=== PATIENT | female | born 1940 | race Caucasian/White ===

== ENCOUNTER 2020-10-04 09:24 | Inpatient (IN) | payer MEDICARE ==
[~2020-10-04] VITALS: Ht 165.1 cm; Wt 77.9 kg
--- NOTE | 2020-10-04 09:42 | NUR ---
PATIENT WENT URGENT CARE YESTERDAY AT [facility] AND WAS DIAGNOSED WITH UTI AND WAS GIVEN NITORFURITAN AND FLUCANOZOLE Addendum: 10/04/20 at 0943 by DEVIN PATIENT WAS SEEN YESTERDAY [facility] FOR UTI AND GIVEN FLUCANOZOLE AND NITROFURITAN, STARTED THEM BUT TODAY FEELS WEAK/LEGS HEAVY/ LIGHT HEADED.
[2020-10-04] MEDS ORDERED: SODIUM CHLORIDE 0.9% 1,000ML IVBOLUS ONE ×2 (11:00→13:30)
[2020-10-04] MEDS ORDERED: SODIUM CHLORIDE FLUSH 10ML SYR IVF ONE (11:00)
--- NOTE | 2020-10-04 11:19 | NUR ---
patient a difficult stick. myself, tech attempted 5 times before getting iv. apoligizing, aidet
--- NOTE | 2020-10-04 11:37 | NUR ---
patient doesn't have to stool at this time. lab attempting to get bloodwork, the iv wouldn't draw blood. will cath patient once lab leaves.
--- NOTE | 2020-10-04 12:00 | NUR ---
cath'd patient. dark yellow urine out. sent to lab. 350 cc
[2020-10-04 12:04] LABS: ALANINE AMINOTRANSFERASE 31 U/L (12-78); ALBUMIN 3.3 g/dL (3.4-5.0); ANION GAP 4 mmol/L (5-15); CALCIUM 9.6 mg/dL (8.5-10.1); CHLORIDE 112 mmol/L (98-107); CREATININE 1.86 mg/dL (0.55-1.02)
[2020-10-04 12:07] LABS: ALKALINE PHOSPHATASE 48 U/L (45-117); BILIRUBIN,TOTAL 1.1 mg/dL (0.2-1.0); TOTAL PROTEIN 6.9 g/dL (6.4-8.2)
--- NOTE | 2020-10-04 12:22 | NUR ---
patient aox4. hypotensive, and lab draw not viable so redrawing, got order for new liter fluid to help lab draw and bp. son at bedside.
[2020-10-04 12:42] LABS: MEAN CORPUSCULAR HEMOGLOBIN 29.8 pg (27.0-34.8); MEAN CORPUSCULAR HGB CONC 33.3 g/dL (32.4-35.8); MEAN PLATELET VOLUME 7.6 fL (7.4-10.4); PLATELET COUNT 261 x10^3/uL (130-400); RED BLOOD COUNT 4.02 x10^6/uL (3.82-5.3); RED CELL DISTRIBUTION WIDTH 15.1 % (9.6-15.2)
[2020-10-04 13:16] LABS: MICROSCOPIC INDICATED
--- NOTE | 2020-10-04 13:17 | NUR ---
placed patient on jamal hugger, she has asked 3x for blankets and has 4. daughter at bedside.
[2020-10-04 13:21] LABS: MD YES
[2020-10-04 13:22] LABS: BAND#(MANUAL) 0.56 x10^3/uL; BANDS%(MANUAL) 3 % (0-7); EOS#(MANUAL) 0.19 x10^3/uL (0.0-0.4); EOS% (MANUAL) 1 % (1-7); LYMPH#(MANUAL) 0.56 x10^3/uL (1-3.4); LYMPHS% (MANUAL) 3 % (22-44); SEG#(MANUAL) 17.39 x10^3/uL (1.8-6.8); SEGS% (MANUAL) 93 % (42-75)
[2020-10-04 13:23] LABS: <PLATELET ESTIMATE> ADEQUATE; <PLT MORPHOLOGY> NORMAL PLT MORPH; OVALOCYTES 1+
--- NOTE | 2020-10-04 13:42 | NUR ---
consenting patient for central line and setting up. patient and daughter discussing. on monitor, rails up.
--- NOTE | 2020-10-04 15:02 | NUR ---
TASK RN: PT RESTING IN [facility]. FAMILY MEMBER BEDSIDE.
--- NOTE | 2020-10-04 15:18 | NUR ---
patient left to ct scan
[2020-10-04] MEDS ORDERED: PROMETHAZINE 25 MG/ML, 1ML IM PRN (16:00)
[2020-10-04] MEDS ORDERED: hydrALAzine 20 MG/ML, 1ML IVPush PRN (16:00)
[2020-10-04] MEDS: CEFTRIAXONE PMX 2GM/50ML 50 ML IVPB SCH (16:00)
[2020-10-04] MEDS ORDERED: HYDROcodone/APAP 5/325 TABLET PO PRN (16:00)
[2020-10-04] MEDS ORDERED: ONDANSETRON 2MG/ML, 2ML IVPush PRN (16:00)
[2020-10-04] MEDS: SODIUM CHLORIDE 0.9% 1,000 ML IV SCH (16:18)
[2020-10-04] MEDS: ENOXAPARIN 40 MG/0.4 ML SQ SCH ×2 (16:18→16:32)
[2020-10-04] MEDS ORDERED: CEFTRIAXONE PMX 1GM/50ML 50 ML ONE (16:20)
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
--- NOTE | 2020-10-04 17:22 | NUR ---
called attending fabricio anthony and clarified that she wants a c19 order, and she said yes, that she thought it was ordered and collected by [facility]. it was not. got verbal order and swabbed. then explained to daughter for second time today that patient can not have visitors and she is angry and refusing to leave. explained at length to patient for her and others safety that is is prefered that she leave. let assistant district attorney danny know. swab walked to lab.
--- NOTE | 2020-10-04 17:30 | NUR ---
GOT PATIENT FOOD AND LET DAUGHTER KNOW THAT CT UNREMARKABLE
--- NOTE | 2020-10-04 18:06 | NUR ---
patient ate a egg salad sandwich, pears and crackers.
[2020-10-04] MEDS ORDERED: ENOXAPARIN 30 MG/0.3 ML SQ SCH (18:50)
--- NOTE | 2020-10-04 18:58 | NUR ---
bedside report received from Billy RN, pt care transferred at this time.pt assisted onto bedpan, states "id prefer you just stick something in my bladder". This RN educated pt that it is an infection risk to cath someone. pt unable to urinate at thsi time. updated on poc, other questions answered appropriately, nad, wctm. waiting for admit bed
[2020-10-04] MEDS ORDERED: LOSA25TA25 PO (19:08)
[2020-10-04] MEDS ORDERED: ASPI-515 PO (19:08)
[2020-10-04] MEDS ORDERED: VIT1CAPS16 PO (19:08)
[2020-10-04] MEDS ORDERED: ALBU8.5H8 INH (19:08)
[2020-10-04] MEDS ORDERED: OXYB-39 PO (19:08)
[2020-10-04] MEDS ORDERED: ATOR40TA78 PO (19:08)
[2020-10-04] MEDS ORDERED: CETI10CA PO (19:08)
[2020-10-04] MEDS ORDERED: MELO15TA24 PO (19:08)
[2020-10-04] MEDS ORDERED: HYDROcodone/APAP 5/325 TABLET ONE (19:30)
--- NOTE | 2020-10-04 19:40 | NUR ---
LATE ENTRY D.T PT CARE: PT MEDICATED PER MAR, RESTING ON GURNEY, NAD DENIES ADDITIONAL NEEDS AT THIS TIME. REPORT CALLED TO MADINA KILGORE. PT CARE TO BE TRANSFERRED UPON ARRIVAL TO THE FLOOR.
[2020-10-04 20:45] VITALS: BP 130/81
[2020-10-04] MEDS: FAMOTIDINE 20 MG TABLET PO SCH (20:46)
[2020-10-04] MEDS ORDERED: TEMAZEPAM 15 MG CAPSULE PO PRN (21:00)
[2020-10-05 01:00] VITALS: BP 120/81
[2020-10-05 07:50] VITALS: BP 162/75
[2020-10-05 09:27] LABS: BASOPHILS % (AUTO) 0 % (0-1); EOSINOPHILS % (AUTO) 6 % (1-7); LYMPHOCYTES % (AUTO) 7 % (22-44); MEAN CORPUSCULAR HGB CONC 33.3 g/dL (32.4-35.8); MEAN PLATELET VOLUME 8.1 fL (7.4-10.4); MONOCYTES % (AUTO) 3 % (2-9); NEUTROPHILS % (AUTO) 84 % (42-75); PLATELET COUNT 241 x10^3/uL (130-400); RED BLOOD COUNT 3.91 x10^6/uL (3.82-5.3); RED CELL DISTRIBUTION WIDTH 15.3 % (9.6-15.2)
[2020-10-05 09:30] LABS: MD NO
[2020-10-05 09:36] LABS: ANION GAP 8 mmol/L (5-15); CALCIUM 8.1 mg/dL (8.5-10.1); CHLORIDE 118 mmol/L (98-107)
[2020-10-05 12:19] VITALS: BP 138/83
[2020-10-05] MEDS: CEFTRIAXONE PMX 2GM/50ML 50 ML IVPB SCH (15:52)
[2020-10-05] MEDS: SODIUM CHLORIDE 0.9% 1,000 ML IV SCH ×2 (15:52)
[2020-10-05] MEDS ORDERED: ENOXAPARIN 30 MG/0.3 ML SQ SCH (17:00)
[2020-10-05 19:28] VITALS: BP 158/71
[2020-10-05] MEDS: FAMOTIDINE 20 MG TABLET PO SCH (21:37)
[2020-10-05] MEDS: ACETAMINOPHEN 325 MG TABLET PO PRN (21:41)
[2020-10-06 00:03] VITALS: BP 155/74
[2020-10-06 07:16] VITALS: BP 189/70
[2020-10-06] MEDS: ACETAMINOPHEN 325 MG TABLET PO PRN (08:52)
[2020-10-06 09:13] VITALS: BP 154/67
[2020-10-06] MEDS: SODIUM CHLORIDE 0.9% 1,000 ML IV SCH (12:01)
[2020-10-06 12:06] VITALS: BP 153/69
[2020-10-06] MEDS: CEFTRIAXONE PMX 2GM/50ML 50 ML IVPB SCH (12:06)
[2020-10-06] MEDS ORDERED: LOSARTAN 50MG TABLET PO SCH (13:30)
== END 2020-10-06 14:32 | disposition home or self-care (01) | DRG 689 ==
LOC: ED 09:54 → EDIP 14:06 → 4EST 20:21
PROVIDERS: ADMIT Emergency Medicine; ATTEND Internal Medicine
PROC: 0T9B70Z Drainage of Bladder with Drainage Device, Via Natural or Artificial Opening (ICD-10-PCS; principal; 2020-10-04)
PROC: 02HV33Z Insertion of Infusion Device into Superior Vena Cava, Percutaneous Approach (ICD-10-PCS; 2020-10-04)
PROC: B548ZZA Ultrasonography of Superior Vena Cava, Guidance (ICD-10-PCS; 2020-10-04)
DX: N39.0 Urinary tract infection, site not specified (principal); N17.0 Acute kidney failure with tubular necrosis; I12.9 Hypertensive chronic kidney disease with stage 1 through stage 4 chronic kidney disease, or unspecified chronic kidney disease; N18.9 Chronic kidney disease, unspecified; I95.9 Hypotension, unspecified; E86.0 Dehydration; Z20.822 Contact with and (suspected) exposure to COVID-19; Z79.82 Long term (current) use of aspirin; Z88.2 Allergy status to sulfonamides
CPT/HCPCS: 36415; 36556; 71045; 74177; 80048; 80053; 81001; 83605; 83735; 84443; 85025; 87040; 87086; 93005; 96360; 96361; 96372; 96374; 99285; 99291; G0378; J0696; J1650; J0360; J7030; U0003